=== PATIENT | female | born 1995 | race Caucasian/White ===

== ENCOUNTER 2018-03-19 17:26 | Emergency (ER) | payer OTHER ==
[~2018-03-19] VITALS: Ht 167.6 cm; Wt 69.0 kg
[2018-03-19 17:34] VITALS: BP 113/69; PULSE 65; RESP 16; TEMP 98.5; O2SAT 99
[2018-03-19] MEDS ORDERED: CLON.5 PO (17:53)
[2018-03-19] MEDS ORDERED: ANDR1.62 TOPICAL (17:53)
[2018-03-19] MEDS ORDERED: TOPI100 PO (17:53)
[2018-03-19] MEDS ORDERED: ANXIETY PILL (17:53)
[2018-03-19 18:13] VITALS: BP 122/65; PULSE 68; RESP 16; O2SAT 99
[2018-03-19 18:37] LABS: AUTOMATED NEUTROPHIL # 5.7 TH/MM3 (1.8-7.7); BASOPHIL # 0.1 TH/MM3 (0-0.2); BASOPHIL % 0.9 % (0.0-2.0); EOSINOPHIL # 0.1 TH/MM3 (0-0.4); EOSINOPHIL % 1.1 % (0.0-4.0); HEMATOCRIT 43.3 % (35.0-46.0); HEMOGLOBIN 14.6 GM/DL (11.6-15.3); MEAN CORPUSCULAR HEMOGLOBIN 31.4 PG (27.0-34.0); MEAN CORPUSCULAR HGB CONC 33.8 % (32.0-36.0); MONO % 7.4 % (0.0-8.0); MONOCYTE # 0.7 TH/MM3 (0-0.9); NEUT % 59.6 % (16.0-70.0); PLATELET COUNT 358 TH/MM3 (150-450); RED BLOOD COUNT 4.66 MIL/MM3 (4.00-5.30); RED CELL DISTRIBUTION WIDTH 11.6 % (11.6-17.2); WHITE BLOOD COUNT 9.6 TH/MM3 (4.0-11.0)
[2018-03-19] MEDS ORDERED: PREPOIN TOPICAL (18:45)
--- NOTE | 2018-03-19 18:45 | PD ---
HPI Chief Complaint: GI Complaint Time Seen by Provider: 18:04 Travel History International Travel<30 days: No Contact w/Intl Traveler<30days: No Traveled to known affect area: No History of Present Illness HPI 22-year-old female patient with history of previous episodes of bleeding in her stools, was supposed to be getting a colonoscopy but did not get one done because of cost, presents to the ER today because she started having bleeding after having a bowel movement today. She states that she did have hard stools, but she states that she sees a lot of red blood and was concerned. She states that has been having intermittently. She states that she is currently in her menses but, wears a tampon, and knows that this is rectal bleeding. She denies any black stools. She denies any other symptoms. Modifying Factors: None Associated Signs & Symptoms: Red blood per rectum Risk Factors: Previous episodes PFSH Past Medical History Anxiety: Yes Migraines: Yes Tetanus Vaccination: Unknown Influenza Vaccination: No ?: Not LMP: 03/19/18 Past Surgical History Tonsillectomy: Yes Social History Alcohol Use: Yes (SOCIALLY) Tobacco Use: No Substance Use: Yes (MARIJUANA-LAST WEEK) Allergies-Medications (Allergen,Severity, Reaction): Coded Allergies: latex (Verified Allergy, Intermediate, 03/19/18) Reported Meds & Prescriptions Reported Meds & Active Scripts Active Reported [Anxiety Pill] Androgel Pump Topical (Testosterone) 20.25/1.25 Gel 40.5 Mg TOPICAL DAILY Klonopin (Clonazepam) 0.5 Mg Tab 0.5 Mg PO TID PRN Topamax (Topiramate) 100 Mg Tab 125 Mg PO BID Review of Systems Except as stated in HPI: all other systems reviewed are Neg Physical Exam Narrative GENERAL: Well-developed young female patient currently in mild distress. Awake and oriented 3. SKIN: Focused skin assessment warm/dry. HEAD: Atraumatic. Normocephalic. EYES: Pupils equal and round. No scleral icterus. No injection or drainage. ENT: No nasal bleeding or discharge. Mucous membranes pink and moist. NECK: Trachea midline. No JVD. CARDIOVASCULAR: Regular rate and rhythm. No murmur appreciated. RESPIRATORY: No accessory muscle use. Clear to auscultation. Breath sounds equal bilaterally. GASTROINTESTINAL: Abdomen soft, non-tender, nondistended. Hepatic and splenic margins not palpable. RECTAL EXAM: No masses or tenderness, stool is brown. There is a notable external hemorrhoid with small amount dried blood on it. MUSCULOSKELETAL: No obvious deformities. No clubbing. No cyanosis. No edema. NEUROLOGICAL: Awake and alert. No obvious cranial nerve deficits. Motor grossly within normal limits. Normal speech. PSYCHIATRIC: Appropriate mood and affect; insight and judgment normal. Data Data Last Documented VS Vital Signs Date Time Temp Pulse Resp B/P (MAP) Pulse Ox O2 Delivery O2 Flow Rate FiO2 03/19/18 18:13 68 16 122/65 (84) 99 03/19/18 17:34 98.5 Orders Orders Complete Blood Count With Diff (03/19/18 18:04) Ed Discharge Order (03/19/18 18:41) Labs Laboratory Tests Test 03/19/18 18:20 White Blood Count 9.6 TH/MM3 Red Blood Count 4.66 MIL/MM3 Hemoglobin 14.6 GM/DL Hematocrit 43.3 % Mean Corpuscular Volume 93.0 FL Mean Corpuscular Hemoglobin 31.4 PG Mean Corpuscular Hemoglobin Concent 33.8 % Red Cell Distribution Width 11.6 % Platelet Count 358 TH/MM3 Mean Platelet Volume 8.0 FL Neutrophils (%) (Auto) 59.6 % Lymphocytes (%) (Auto) 31.0 % Monocytes (%) (Auto) 7.4 % Eosinophils (%) (Auto) 1.1 % Basophils (%) (Auto) 0.9 % Neutrophils # (Auto) 5.7 TH/MM3 Lymphocytes # (Auto) 3.0 TH/MM3 Monocytes # (Auto) 0.7 TH/MM3 Eosinophils # (Auto) 0.1 TH/MM3 Basophils # (Auto) 0.1 TH/MM3 CBC Comment DIFF FINAL Differential Comment MDM Medical Decision Making Medical Screen Exam Complete: Yes Emergency Medical Condition: Yes Medical Record Reviewed: Yes Differential Diagnosis Rectal bleeding: Hemorrhoidal bleeding versus GI bleeding Narrative Course Hemoccult was negative. It appears that she is having bleeding from an external hemorrhoid. There is no longer any bleeding currently. At this point , my plan would be to release her with follow-up to primary care physician and GI doctor, symptoms worsen or continue, she may need to get further evaluation for this issue. Vital signs and H&H is stable. The plan was discussed with her and she states understanding. [facility] Point of Care Internal Pos. & Neg. Controls: Passed Fecal Specimen Occult Blood: Negative Diagnosis Primary Impression: External bleeding hemorrhoids Med/Other Pt SpecificInfo: Prescription(s) given Scripts Phenylephrine-Mineral Oil-Petrolatum Topical (Preparation H Topical) 0.25-3-14- 71.9 % Oint 1 APPLIC TOPICAL DIRECTED Y for Rectal Pain, #1 TUBE 0 Refills Prov: Missy Ray MD 03/19/18 Disposition: 01 DISCHARGE HOME Condition: Stable Missy Ray MD Mar 19, 2018 18:45
== END 2018-03-19 19:06 | disposition home or self-care (01) ==
LOC: EDBD 17:26 → PHED 17:26
DX: K64.4 Residual hemorrhoidal skin tags (principal); F41.9 Anxiety disorder, unspecified; F12.90 Cannabis use, unspecified, uncomplicated
CPT/HCPCS: 85025; 99284